=== PATIENT | female | born 1945 | race Asian ===

== ENCOUNTER 2017-02-01 19:14 | Emergency (ER) | payer MEDICARE, OTHER ==
[~2017-02-01] VITALS: Ht 162.6 cm; Wt 63.0 kg
[~2017-02-01 19:14] MED LIST: ASPI-535 PO; CARV3.12 PO; CENTSILV PO; CIPR500T4 PO; DEXL60CA2 PO; METO10TA92 PO; OMEG500C PO; TRAM50TA2 PO
[2017-02-01 19:22] VITALS: Ht 162.6 cm; Wt 63.0 kg
[2017-02-01 20:46] LABS: URINE BLOOD (Dip) POC Negative (NEGATIVE)
[2017-02-01 21:08] LABS: WHITE BLOOD COUNT 9.4 10^3/ul (4.8-10.8)
[2017-02-01 21:09] LABS: BASOPHILS % 0.3 % (0.0-2.0); EOSINOPHILS # 0.1 10^3/ul (0.0-0.5); EOSINOPHILS % 1.3 % (0.0-7.0); HEMATOCRIT 38.8 % (37.0-47.0); HEMOGLOBIN 12.5 g/dl (12.0-16.0); LYMPHOCYTES # 2.6 10^3/ul (0.8-2.9); LYMPHOCYTES % 27.6 % (15.0-51.0); MEAN CORPUSCULAR HEMOGLOBIN 31.4 pg (29.0-33.0); MEAN CORPUSCULAR HGB CONC 32.2 g/dl (32.0-37.0); MEAN CORPUSCULAR VOLUME 97.5 fl (82.0-101.0); MEAN PLATELET VOLUME 11.1 fl (7.4-10.4); MONOCYTE # 0.6 10^3/ul (0.3-0.9); MONOCYTES % 6.4 % (0.0-11.0); NEUTROPHILS % 64.1 % (39.0-77.0); PLATELET COUNT 226 10^3/UL (140-415); RED BLOOD COUNT 3.98 10^6/ul (4.20-5.40); RED CELL DISTRIBUTION WIDTH 12.4 % (11.5-14.5)
[2017-02-01 21:21] LABS: ADD UMIC YES; UR ASCORBIC ACID NEGATIVE (NEGATIVE); UR BILIRUBIN (Dip) NEGATIVE (NEGATIVE); UR BLOOD (Dip) NEGATIVE (NEGATIVE); UR CLARITY CLEAR (CLEAR); UR COLOR YELLOW (YELLOW); UR GLUCOSE (Dip) NEGATIVE (NEGATIVE); UR KETONES (Dip) NEGATIVE (NEGATIVE); UR LEUKOCYTE ESTERASE (Dip) TRACE Leu/ul (NEGATIVE); UR NITRITE (Dip) NEGATIVE (NEGATIVE); UR RBC 0 /HPF (0-5); UR SPECIFIC GRAVITY (Dip) 1.009 (1.003-1.030); UR TOTAL PROTEIN (Dip) NEGATIVE (NEGATIVE); UR UROBILINOGEN (Dip) NEGATIVE (NEGATIVE)
[2017-02-01 21:26] LABS: ALBUMIN 4.3 g/dl (3.3-4.9); ALBUMIN/GLOBULIN RATIO 1.16; BILIRUBIN,INDIRECT 0.2 mg/dl (0-1.1); BILIRUBIN,TOTAL 0.2 mg/dl (0.2-1.3); CALCIUM 9.6 mg/dl (8.4-10.2); CREATININE 0.78 mg/dl (0.44-1.00); POTASSIUM 4.5 mmol/L (3.5-5.1)
[2017-02-01] MEDS ORDERED: NITR-58 PO (21:41)
[2017-02-01 21:54] VITALS: BP 140/86; PULSE 86; RESP 20; TEMP 98.6
--- NOTE | 2017-02-01 22:47 | ERD ---
ER Documentation Chief Complaint Date/Time DATE: 02/01/17 TIME: 22:37 Chief Complaint pelvic pain w/ burning sensation on urination HPI Patient is a 71-year-old female brought in by her daughter with a past medical history of hypertension, GERD, glaucoma, status post hysterectomy, status post appendectomy, who presents to the emergency department for concerns of pelvic pain 1 month as well as burning pain with urination. Patient states her pain is episodic in nature. Patient does report taking ibuprofen approximately 1 week ago. She has not taken this medication since that time. Patient states that the ibuprofen did help however her pain is now returned. Patient reports pain in the suprapubic region. Patient also reports dysuria and frequency. Patient states that her urine is "cloudy". Patient denies any hematuria, flank pain, fever, chills, nausea, vomiting or LOC. Patient also reporting lower back pain x 2 months. Patient denies any falls or trauma. Patient denies any saddle anesthesia, urinary incontinence, stool incontinence, recent history of surgery or cancer diagnosis. Patient denies any chest pain, shortness breath, left upper extremity pain, diaphoresis or LOC. ROS All systems reviewed and are negative except as per history of present illness. Medications Home Meds Active Scripts Nitrofurantoin Monohyd Macrocr* (Macrobid*) 100 Mg Capsr, 100 MG PO BID for 5 Days, CAP Prov:PAUL FLORENCE PA-C 02/01/17 Ciprofloxacin Hcl* (Ciprofloxacin Hcl*) 500 Mg Tablet, 500 MG PO BID, #10 TAB Prov:VICENTA SEN MD 06/08/15 Carvedilol* (Coreg*) 3.125 Mg Tab, 3.125 MG PO BID, #60 TAB Prov:VCIENTA SEN MD 06/08/15 Tramadol HCl (Tramadol HCl) 50 Mg Tablet, 50 MG PO Q8H Y for PAIN LEVEL 6-10, # 20 TAB Prov:VICENTA SEN MD 06/08/15 Metoclopramide* (Reglan*) 10 Mg Tablet, 10 MG PO Q6H Y for NAUSEA AND OR VOMITING, #20 TAB Prov:VICENTA SEN MD 06/08/15 Reported Medications Dexlansoprazole (Dexilant) 60 Mg Cap., 60 MG PO DAILY, CAP 03/06/15 Multivitamins/Minerals (Centrum Silver) 1 Tab Tab, 1 TAB PO DAILY 12/30/11 Aspirin Ec (Aspir 81) 81 Mg Tablet.dr, 81 MG PO DAILY 02/22/11 [place]-3 Fatty Acids (Fish Oil) 500 Mg Capsule.dr, 1 CAP PO BID 12/31/09 Allergies Allergies: Coded Allergies: Sulfa (Sulfonamide Antibiotics) (Verified Allergy, Mild, RASH, MOUTH SORES , 01/23/14) RE-ENTERED UNCODED ALLERGY CODED Metronidazole HCl (Verified Allergy, Unknown, 01/23/14) erythromycin base (Verified Allergy, Unknown, 01/23/14) lorazepam (Verified Allergy, Unknown, 01/23/14) PMhx/Soc History of Surgery: Yes (HYSTERECTOMY, CATARACT, APPENDECTOMY) Anesthesia Reaction: No Hx Neurological Disorder: No Hx Respiratory Disorders: No Hx Cardiac Disorders: Yes (HYPERTENSION) Hx Psychiatric Problems: No Hx Miscellaneous Medical Probl: Yes (GERD, GLAUCOMA) Hx Alcohol Use: No Hx Substance Use: No Hx Tobacco Use: No Smoking Status: Never smoker FmHx Family History: No diabetes Physical Exam Vitals Vital Signs Date Time Temp Pulse Resp B/P Pulse Ox O2 Delivery O2 Flow Rate FiO2 02/01/17 21:54 98.6 86 20 140/86 100 Room Air 02/01/17 19:22 97.6 82 20 120/57 98 Physical Exam GENERAL: Well-developed, well-nourished female. Appears in no acute distress. HEAD: Normocephalic, atraumatic. EYES: Pupils are equally reactive bilaterally. EOMs grossly intact. No conjunctival erythema. ENT: Moist mucous membranes. No uvula deviation. No kissing tonsils. NECK: Supple. No meningismus. Normal range of motion of the neck. LUNG: Clear to auscultation bilaterally. No rhonchi, wheezing, rales or coarse breath sounds. HEART: Regular rate and rhythm. No murmurs, rubs or gallops. ABDOMEN: Soft, and nondistended. Tender to palpation in the suprapubic region. Positive bowel sounds in all four quadrants. No rebound tenderness, no guarding. (-) McBurney's point tenderness. No CVA tenderness. BACK: No midline tenderness. Tender to palpation of bilateral lumbar paraspinalis muscles. +Right straight leg raise test. EXTREMITIES: Equal pulses bilaterally. No peripheral clubbing, cyanosis or edema. No unilateral leg swelling. NEUROLOGIC: Alert and oriented. Moving all four extremities without any difficulty. Normal speech. Steady gait. SKIN: Normal color. Warm and dry. No rashes or lesions. Result Diagram: 02/01/17204902/01/172049 Results 24 hrs Laboratory Tests Test 02/01/17 20:30 02/01/17 20:50 02/01/17 20:53 Urine Color YELLOW Urine Clarity CLEAR Urine pH 7.0 Urine Specific [place] 1.009 Urine Ketones NEGATIVEmg/dL Urine Nitrite NEGATIVEmg/dL Urine Bilirubin NEGATIVEmg/dL Urine Urobilinogen NEGATIVEmg/dL Urine Leukocyte Esterase TRACELeu/ul Urine Microscopic RBC 0/HPF Urine Microscopic WBC 2/HPF Urine Hemoglobin NEGATIVEmg/dL Urine Glucose NEGATIVEmg/dL Urine Total Protein NEGATIVEmg/dl White Blood Count 9.410^3/ul Red Blood Count 3.9810^6/ul Hemoglobin 12.5g/dl Hematocrit 38.8% Mean Corpuscular Volume 97.5fl Mean Corpuscular Hemoglobin 31.4pg Mean Corpuscular Hemoglobin Concent 32.2g/dl Red Cell Distribution Width 12.4% Platelet Count 22374^3/UL Mean Platelet Volume 11.1fl Neutrophils % 64.1% Lymphocytes % 27.6% Monocytes % 6.4% Eosinophils % 1.3% Basophils % 0.3% Nucleated Red Blood Cells % 0.0/100WBC Neutrophils # 6.010^3/ul Lymphocytes # 2.610^3/ul Monocytes # 0.610^3/ul Eosinophils # 0.110^3/ul Basophils # 0.010^3/ul Nucleated Red Blood Cells # 0.010^3/ul Sodium Level 142mmol/L Potassium Level 4.5mmol/L Chloride Level 103mmol/L Carbon Dioxide Level 31mmol/L Anion Gap 13 Blood Urea Nitrogen 11mg/dl Creatinine 0.78mg/dl Glucose Level 102mg/dl Calcium Level 9.6mg/dl Total Bilirubin 0.2mg/dl Direct Bilirubin 0.00mg/dl Indirect Bilirubin 0.2mg/dl Aspartate Amino Transf (AST/SGOT) 39IU/L Alanine Aminotransferase (ALT/SGPT) 42IU/L Alkaline Phosphatase 105IU/L Total Protein 8.0g/dl Albumin 4.3g/dl Globulin 3.70g/dl Albumin/Globulin Ratio 1.16 Lipase 106U/L Bedside Urine pH (LAB) 7.0 Bedside Urine Protein (LAB) Negative Bedside Urine Glucose (UA) Negative Bedside Urine Ketones (LAB) Negative Bedside Urine Blood Negative Bedside Urine Nitrite (LAB) Negative Bedside Urine Leukocyte Esterase (L Trace Procedures/MDM ED COURSE: The patient was stable throughout ED course. I kept the patient and/or family informed of laboratory and diagnostic imaging results throughout the ED course. MEDICAL DECISION MAKING: This is a 71-year-old female who presents with suprapubic pain, dysuria, frequency and lower back pain. Patient denies any falls or trauma. Patient denies any saddle anesthesia, urinary cons, esophagitis, fever, chills, history of cancer or recent surgery. Vital signs were reviewed. Patient was afebrile. CBC showed no evidence of systemic infection or severe anemia. CMP showed no evidence of electrolyte abnormalities, severe acidosis, alkalosis, renal failure , or liver disease. Lipase showed no evidence of acute pancreatitis. Urinalysis showed trace leukocyte esterase. Given that patient did report symptoms of dysuria and urinary frequency, treat the patient with course of antibiotics at this time. Patient's urine will be sent for culture. Urine culture results pending. I did offer the patient x-ray of her lumbar back however she declined. Given the patient's blood work was unremarkable, I do not believe that CT imaging studies of the abdomen or pelvis are indicated at this time. Given these findings, the patients presentation is most consistent with urinary tract infection and lower back pain. I have a much lower clinical concern for cauda equina syndrome, spinal fracture, epidural abscess, sciatica, osteomyelitis, pyelonephritis, nephrolithiasis, diverticulitis, constipation, PID, ovarian torsion, or tubo-ovarian abscess. PRESCRIPTIONS: Macrobid DISCHARGE: At this time, patient is stable for discharge and outpatient management. Patient was given a copy of all blood work obtained today. I have instructed the patient to follow-up with his/her primary care physician in 1-2 days. Patient should repeat UA in 2 weeks to check for resolution of urinary tract infection. If symptoms persist, patient may need to see a specialist for further examinations and testing. I have instructed the patient to promptly return to the ER at any time for any new or worsening symptoms including increased pain, fever, nausea, vomiting, urinary changes or weakness. The patient and/or family expressed understanding of and agreement with this plan. All questions were answered. Home care instructions were provided. Disclaimer: Inadvertent spelling and grammatical errors are likely due to EHR/ dictation software use and do not reflect on the overall quality of patient care. Also, please note that the electronic time recorded on this note does not necessarily reflect the actual time of the patient encounter. Departure Diagnosis: Primary Impression: UTI (urinary tract infection) Urinary tract infection type: acute cystitis Hematuria presence: without hematuria Qualified Code: N30.00 - Acute cystitis without hematuria Additional Impression: Lower back pain Chronicity: chronic Back pain laterality: unspecified Sciatica presence: unspecified whether sciatica present Qualified Code: M54.5 - Chronic low back pain, unspecified back pain laterality, with sciatica presence unspecified Condition: Stable Patient Instructions: Understanding Urinary Tract Infections (UTIs) Additional Instructions: Call your primary care doctor TOMORROW for an appointment during the next 1-2 days.See the doctor sooner or return here if your condition worsens before your appointment time. PAUL FLORENCE PA-C Feb 01, 2017 22:46
== END 2017-02-01 21:56 | disposition home or self-care (01) ==
LOC: FTE 19:14
DX: N30.00 Acute cystitis without hematuria (principal); M54.5 Low back pain; I10 Essential (primary) hypertension; Z79.82 Long term (current) use of aspirin
CPT/HCPCS: 36415; 80053; 81001; 81003; 83690; 85025; 87086; 99283

== ENCOUNTER → 2017-02-05 | Outpatient (CLI) | payer MEDICARE, OTHER ==
[~2017-02-05] MED LIST changes: +NITR-58 PO
--- NOTE | 2017-02-05 14:28 | RADRPT ---
PROCEDURE: US Pelvis CLINICAL INDICATION: PELVIC PAIN, history of hysterectomy TECHNIQUE: Multiple sonographic images of the pelvis were obtained utilizing a transabdominal and endovaginal technique. The images were reviewed on a PACS workstation. COMPARISON: None. FINDINGS: The uterus is not visualized. There are no abnormal pelvic masses. Bilateral ovaries are not visualized. There are no abnormal adnexal masses. No significant pelvic free fluid is identified. IMPRESSION: The uterus and bilateral ovaries are not visualized. There are no abnormal pelvic or adnexal masses . Correlation with surgical history for oophorectomy is recommended. RPTAT: EE Physician Nghia Date Time Electronically viewed and signed by Physician Nghia on 02/05/2017 14:28 /
--- NOTE | 2017-02-05 14:33 | RADRPT ---
PROCEDURE: XR Hip. CLINICAL INDICATION: pain TECHNIQUE: AP and frog lateral views of the right hip were performed. COMPARISON: None. FINDINGS: There is normal mineralization and alignment. No fracture or osseous lesion is identified. There are no significant degenerative changes in the hip. The soft tissues are unremarkable. RPTAT: AA IMPRESSION: Unremarkable right hip. Physician Nghia Date Time Electronically viewed and signed by Eder Reese Physician on 02/05/2017 14:33 RA/
--- NOTE | 2017-02-05 14:35 | RADRPT ---
PROCEDURE: XR thoracic Spine. CLINICAL INDICATION: Back pain TECHNIQUE: AP and lateral views of the thoracic spine were obtained. COMPARISON: CT abdomen/pelvis from 01/23/2014 FINDINGS: There is normal vertebral mineralization and alignment. There is marked loss of height at the superior endplate of a mid thoracic vertebra, possibly T9, ant eriorly which is not significantly changed compared with the CT study from 2013. The disc spaces are normal in appearance. The posterior elements are unremarkable. The aortic arch is calcified. RPTAT: AA IMPRESSION: Marked loss of height of a mid thoracic vertebra consistent with an old compression fracture, as abo ve. An acute on chronic component to the fracture is not entirely excluded. Correlation with physi merlin exam for tenderness to palpation is recommended. Aortic atherosclerosis. Physician Nghia Date Time Electronically viewed and signed by Eder Reese Physician on 02/05/2017 14:35 /
--- NOTE | 2017-02-05 14:36 | RADRPT ---
PROCEDURE: XR Lumbar Spine. CLINICAL INDICATION: back pain TECHNIQUE: AP, lateral and cone-down lateral view of the lumbar spine were obtained. COMPARISON: No prior studies are available for comparison. FINDINGS: There is normal vertebral mineralization and alignment. No fracture or subluxation is seen. The disc spaces are normal in appearance. The posterior elements are unremarkable. The soft tissues appear normal. RPTAT: AA IMPRESSION: Unremarkable lumbar spine. Eder Reese Physician Date Time Electronically viewed and signed by Eder Reese Physician on 02/05/2017 14:36 RA/
== END | disposition home or self-care (01) ==
LOC: U/S 10:50
PROVIDERS: ATTEND Internal Medicine
DX: R10.2 Pelvic and perineal pain (principal); M54.5 Low back pain; M25.551 Pain in right hip
CPT/HCPCS: 72072; 72100; 73510; 76856

== ENCOUNTER 2017-09-23 14:14 | Emergency (ER) | END 2017-09-23 20:39 | disposition home or self-care (01) ==

== ENCOUNTER → 2017-10-17 | Outpatient (CLI) | END | disposition home or self-care (01) ==

== ENCOUNTER → 2018-02-28 | Outpatient (CLI) | END | disposition home or self-care (01) ==

== ENCOUNTER 2018-03-23 21:13 | Emergency (ER) | END 2018-03-24 | disposition home or self-care (01) ==

== ENCOUNTER → 2018-03-31 | Outpatient (CLI) | END | disposition home or self-care (01) ==

== ENCOUNTER → 2018-12-30 | Outpatient (CLI) | payer MEDICARE, OTHER ==
[~2018-12-30] MED LIST changes: +AZIT250T PO; +CEPH-443 PO; +CODE5LIQ2 PO; +IBUP-1542 PO; +ONDA4TAB8 PO
== END | disposition home or self-care (01) ==
LOC: RAD 11:31
PROVIDERS: ATTEND Internal Medicine
DX: R05 Cough (principal)
CPT/HCPCS: 71046

== ENCOUNTER 2019-01-21 19:03 | Emergency (ER) | payer MEDICARE, OTHER ==
[~2019-01-21] VITALS: Ht 160 cm; Wt 64.3 kg
[~2019-01-21 19:03] MED LIST changes: +AMOX1TAB10 PO
[2019-01-21 19:22] VITALS: Ht 160 cm; Wt 64.3 kg
[2019-01-21] MEDS ORDERED: SOD CHLORIDE 0.9% 500 ML IV STA (22:41)
[2019-01-21] MEDS ORDERED: ONDANSETRON 4 MG INJ IV STA (22:41)
--- NOTE | 2019-01-22 01:05 | ERD ---
ER Documentation Chief Complaint Chief Complaint lower abdominal pain x 1 day HPI This is a 73-year-old female with a past medical history of hypertension, GERD, previous hysterectomy, previous appendectomy who is presenting with 1 to 2 days of right sided and suprapubic waxing and waning mild to moderate aching sore burning. The patient endorses a burning dysuria with frequency and urgency as well. She endorses nausea but no vomiting. She reports having intermittent episodes of constipation. She has not had any diarrhea. She has not had any black or bloody or tarry stools per report. She does not endorse any alleviatin g or exacerbating factors. She does not endorse any changes with eating. She has had a decreased appetite over the last day. The patient denies fever or chills. However, the patient was noted to be febrile in triage. The patient has had no headache or vision changes. The patient does not endorse neck or back pain. The patient denies lightheadedness or dizziness. The patient has had no chest pain or trouble breathing. The patient has had no focal deficits. The patient has had no weakness or numbness or tingling to the face or extremities. ROS All systems reviewed and are negative except as per history of present illness. Medications Home Meds Active Scripts Ibuprofen* (Motrin*) 600 Mg Tab, 600 MG PO Q6 for pain, #30 TAB Prov:EMILIO THOMAS 07/22/18 Ondansetron Hcl* (Zofran*) 4 Mg Tablet, 4 MG PO Q8H PRN for NAUSEA AND/OR VOMITING, #30 TAB Prov:CEFERINO COOK MD 03/23/18 Cephalexin* (Keflex*) 500 Mg Capsule, 500 MG PO QID for 5 Days, CAP Prov:CEFERINO COOK MD 03/23/18 Guaifenesin-Codeine Phosphate* (Robitussin* AC) 5 Ml Syrup, 10 ML PO Q6H PRN for COUGH, #120 ML Prov:YULISSA ARIZA MD 09/23/17 Azithromycin* (Zithromax*) 250 Mg Tablet, 250 MG PO .ZPACK DIRECTED, #6 TAB TAKE 500 MG (2 TABS) THE FIRST DAY THEN 250 MG (1 TAB) DAYS 2-5 Prov:YULISSA ARIZA MD 09/23/17 Nitrofurantoin Monohyd Macrocr* (Macrobid*) 100 Mg Capsr, 100 MG PO BID for 5 Days, CAP Prov:PAUL FLORENCE PA-C 02/01/17 Ciprofloxacin Hcl* (Ciprofloxacin Hcl*) 500 Mg Tablet, 500 MG PO BID, #10 TAB Prov:VICENTA SEN MD 06/08/15 Carvedilol* (Coreg*) 3.125 Mg Tab, 3.125 MG PO BID, #60 TAB Prov:VICENTA SEN MD 06/08/15 Tramadol HCl (Tramadol HCl) 50 Mg Tablet, 50 MG PO Q8H PRN for PAIN LEVEL 6-10, #20 TAB Prov:VICENTA SEN MD 06/08/15 Metoclopramide* (Reglan*) 10 Mg Tablet, 10 MG PO Q6H PRN for NAUSEA AND OR VOMITING, #20 TAB Prov:VICENTA SEN MD 06/08/15 Reported Medications Dexlansoprazole (Dexilant) 60 Mg Cap..mp, 60 MG PO DAILY, CAP 03/06/15 Multivitamins/Minerals (Centrum Silver) 1 Tab Tab, 1 TAB PO DAILY 12/30/11 Aspirin Ec (Aspir 81) 81 Mg Tablet.dr, 81 MG PO DAILY 02/22/11 [place]-3 Fatty Acids (Fish Oil) 500 Mg Capsule.dr, 1 CAP PO BID 12/31/09 Allergies Allergies: Coded Allergies: Sulfa (Sulfonamide Antibiotics) (Verified Allergy, Mild, RASH, MOUTH SORES, 07/22/18) RE-ENTERED UNCODED ALLERGY CODED Metronidazole HCl (Verified Allergy, Unknown, 07/22/18) erythromycin base (Verified Allergy, Unknown, 07/22/18) lorazepam (Verified Allergy, Unknown, 07/22/18) PMhx/Soc History of Surgery: Yes (HYSTERECTOMY, CATARACT, APPENDECTOMY) Anesthesia Reaction: No Hx Neurological Disorder: No Hx Respiratory Disorders: No Hx Cardiac Disorders: Yes (HYPERTENSION) Hx Psychiatric Problems: No Hx Miscellaneous Medical Probl: Yes (GERD, GLAUCOMA) Hx Alcohol Use: No Hx Substance Use: No Hx Tobacco Use: No Smoking Status: Unknown if ever smoked FmHx Family History: No diabetes Physical Exam Vitals Vital Signs Date Temp Pulse Resp B/P (MAP) Pulse Ox O2 O2 Flow FiO2 Time Delivery Rate 01/21/19 100.5 80 21 127/58 100 Room Air 22:09 (81) 01/21/19 100.5 87 18 127/67 97 19:22 (87) Physical Exam Const: No apparent distress, well-developed, well-nourished Head: Normocephalic, Atraumatic Eyes: Normal Conjunctiva. Extraocular movements intact. ENT: Normal External Ears, Nose and Mouth. Neck: Full range of motion. No meningismus. Resp: Clear to auscultation bilaterally, No wheezes, rales or rhonchi Cardio: Regular rate and rhythm. No murmurs, rubs or gallops Abd: Soft, non distended. Left lower quadrant abdominal tenderness. Normal bowel sounds Skin: No petechiae or rashes Back: No midline tenderness. No CVA tenderness Ext: No cyanosis, or edema Neur: Awake and alert, oriented 4. Cranial nerves intact. No facial droop. Normal strength, sensation and coordination. Psych: Normal Mood and Affect Result Diagram: 01/21/19225101/21/192251 Results 24 hrs Laboratory Tests Test 01/21/19 22:16 01/21/19 22:30 01/21/19 22:52 Urine Color STRAW Urine Clarity CLEAR Urine pH 7.0 Urine Specific [place] 1.004 Urine Ketones NEGATIVE mg/dL Urine Nitrite NEGATIVE mg/dL Urine Bilirubin NEGATIVE mg/dL Urine Urobilinogen NEGATIVE mg/dL Urine Leukocyte Esterase TRACE Matthew/ul Urine Microscopic RBC 0 /HPF Urine Microscopic WBC 3 /HPF Urine Hemoglobin NEGATIVE mg/dL Urine Glucose NEGATIVE mg/dL Urine Total Protein NEGATIVE mg/dl Bedside Urine pH (LAB) 6.5 Bedside Urine Protein (LAB) Negative Bedside Urine Glucose (UA) Negative Bedside Urine Ketones (LAB) Negative Bedside Urine Blood Negative Bedside Urine Nitrite (LAB) Negative Bedside Urine Leukocyte Esterase Trace (L White Blood Count 11.5 10^3/ul Red Blood Count 3.85 10^6/ul Hemoglobin 12.1 g/dl Hematocrit 37.2 % Mean Corpuscular Volume 96.6 fl Mean Corpuscular Hemoglobin 31.4 pg Mean Corpuscular 32.5 g/dl Hemoglobin Concent Red Cell Distribution Width 13.1 % Platelet Count 234 10^3/UL Mean Platelet Volume 11.2 fl Immature Granulocytes % 0.300 % Neutrophils % 71.3 % Lymphocytes % 21.3 % Monocytes % 6.3 % Eosinophils % 0.5 % Basophils % 0.3 % Nucleated Red Blood Cells % 0.0 /100WBC Immature Granulocytes # 0.030 10^3/ul Neutrophils # 8.2 10^3/ul Lymphocytes # 2.5 10^3/ul Monocytes # 0.7 10^3/ul Eosinophils # 0.1 10^3/ul Basophils # 0.0 10^3/ul Nucleated Red Blood Cells # 0.0 10^3/ul Prothrombin Time 11.3 Sec Prothrombin Time Ratio 0.9 INR International 0.81 Normalized Ratio Sodium Level 140 mmol/L Potassium Level 3.8 mmol/L Chloride Level 104 mmol/L Carbon Dioxide Level 30 mmol/L Anion Gap 6 Blood Urea Nitrogen 10 mg/dl Creatinine 0.69 mg/dl Est Glomerular Filtrat mL/min Rate mL/min Glucose Level 109 mg/dl Calcium Level 9.7 mg/dl Total Bilirubin 1.0 mg/dl Direct Bilirubin 0.00 mg/dl Indirect Bilirubin 1.0 mg/dl Aspartate Amino 61 IU/L Transf (AST/SGOT) Alanine 75 IU/L Aminotransferase (ALT/SGPT) Alkaline Phosphatase 131 IU/L Total Protein 7.5 g/dl Albumin 4.2 g/dl Globulin 3.30 g/dl Albumin/Globulin Ratio 1.27 Lipase 116 U/L Current Medications Medications Dose Sig/Sima Start Time Status Last (Trade) Ordered Route PRN Stop Time Admin Dose Reason Admin Sodium 500 ml @ Q1H STAT 01/21/19 DC 01/21/19 Chloride 500 mls/hr IV 22:41 23:07 01/21/19 23:40 Ondansetron 4 mg ONCE STAT 01/21/19 DC 01/21/19 HCl (Zofran IV 22:41 23:07 Inj) 01/21/19 22:57 Procedures/MDM MDM The patient's presentation warrants further investigation. Previous medical records, if available, were reviewed. LABS The patient's laboratory testing was obtained and reviewed. No emergent treatment was required unless described below. CBC: Mild leukocytosis without shift. No E/o systemic infection or severe anemia or thrombocytopenia Chemistry: No E/o severe acidosis or alkalosis or renal failure or diabetic ketoacidosis. Mild transaminitis. Lipase: No E/o pancreatitis PT/INR: No E/o significant coagulopathy Urine: No E/o acute infection or hematuria IMAGING Imaging and Radiology interpretation reviewed. CT abdomen pelvis FINDINGS: The lung bases are clear of any infiltrate or nodule. No effusion is seen. The liver is of normal size, contour and attenuation with no solid mass or ductal dilatation. There are multiple sub centimeter hepatic cysts. No gallstones are visualized. No splenic, adrenal or pancreatic abnormalities present. Kidneys are of normal size and contour. No hydronephrosis or masses seen. There is 88 mm nonobstructing left renal calculus. Ureters are of normal course and caliber with no stone. No bladder mass or stone is present. Uterus is been removed. No adnexal masses present. There is no aneurysm. No adenopathy is present. No bowel mass or obstruction is present. The appendix is not identified. Noted is diverticulosis. There is thickening of the wall of the proximal sigmoid in the left pelvis with stranding of the surrounding pericolic fat. No discrete collection is seen and no ascites or pneumoperitoneum is visualized. The osseous structures are intact. IMPRESSION: Proximal sigmoid diverticulitis left pelvis without abscess or pneumoperitoneum. 2 mm nonobstructing left renal calculus. Tiny hepatic cysts. Electronically viewed and signed by .Junior Valdivia MD, on 01/21/2019 23:54 TREATMENT/DISPOSITION The patient presents for lower and left-sided abdominal pain with nausea. She is found to have a fever in the ER. She does have a mild leukocytosis, but no left shift. I suspect this to be reactive. The patient CT scan does reveal evidence of diverticulitis, which will require treatment. That said, she does not appear systemically ill. I do not suspect sepsis and I do not feel the patient requires a full septic work-up. There is no evidence of viscus perforation. The patient does not have any e vidence of peritonitis. The patient does not have clinical symptoms concerning for mesenteric ischemia or ischemic colitis. The patient does not have right upper quadrant tenderness, and I have low suspicion for gallstones, cholecystitis or biliary colic. The patient does not have any epigastric pain. I have low suspicion for gastritis, PUD or GERD. The patient does not have left upper quadrant tenderness. I have low suspicion for pancreatitis. The patient does not have any right lower quadrant tenderness, or periumbilical tenderness. I have low suspicion for appendicitis. The patient did endorse urinary symptoms, but her urinalysis does not reveal any evidence of an infection. I have decreased suspicion for cystitis. The patient does not have any flank tenderness. The patient does not have gross hematuria. She does have a small nonobstructing left-sided nephrolithiasis. That said, I do not suspect this to be related. I have decreased suspicion for emergent nephrolithiasis or renal colic. The patient does not have any palpable pulsatile mass or severe abdominal pain radiating to the back. I have low suspicion for aortic aneurysm, dissection or rupture. DISCHARGE Upon reevaluation of the patient, symptoms have improved. No emergent diagnoses were identified. At this time, I feel that the patient stable for discharge. The patient was instructed to follow-up with a primary care physician in 1-3 days. The patient will be given strict precautions with which to return to the emergency department. Prescriptions: Cipro, Flagyl, Zofran The patient's blood pressure was elevated at greater than 120/80 while in the emergency department. The patient was otherwise stable with no evidence of hypertensive urgency or emergency. The patient does not require admission for blood pressure control. I have discussed with the patient the risks of hypertension. I have instructed the patient to return to the ER for any new or worsening symptoms including chest pain, shortness of breath, headache, blurred vision, confusion, nausea, vomiting or LOC. I have advised the patient to follow up with the primary care physician for outpatient monitoring and treatment for hypertension in 1-3 days. DISCLAIMER Inadvertent spelling and grammatical errors are likely due to EHR/dictation software use and do not reflect on the overall quality of patient care. Note that the electronic time recorded on this note does not necessarily reflect the actual time of the patient encounter. Departure Diagnosis: Primary Impression: Diverticulitis Additional Impressions: Fever Fever type: unspecified Qualified Codes: R50.9 - Fever, unspecified Nausea Abdominal pain Abdominal location: lower abdomen, unspecified Qualified Codes: R10.30 - Lower abdominal pain, unspecified Leukocytosis Leukocytosis type: unspecified Qualified Codes: D72.829 - Elevated white blood cell count, unspecified Transaminitis Condition: Stable Patient Instructions: Abdominal Pain, Diverticulitis, Nausea Additional Instructions: Thank you for for coming to [facility] for your care today. Please ask your nurse or provider if you have questions about your care today and do not leave until all your questions have been answered. Please use any medications given as directed and follow-up with your doctor (or the doctor you were referred to) in the next 1-3 days. If you do not have a primary care doctor you may follow up at the [facility] or our community hospital (listed below). You may also use motrin and tylenol as needed for fever and/or pain unless instructed otherwise by your provider or nurse. Indications for more urgent follow-up have been discussed, but you may return to the Emergency Department at ANY time for any worrisome or worsening symptoms. If you have abdominal pain, please know that no test or exam you received is perfect and you should follow up within 8 hours for continued pain. If you had any imaging studies today, such as an X-Ray or CT Scan, these studies will be reviewed later by a radiologist. You will be called if there are important findings that were not identified today, so make sure the contact information you provided at registration is correct. If you received any narcotic pain control medicine today, such as Vicodin, Morphine or Dilaudid, your coordination and judgment may be affected for a number of hours. Please do not drive or operate heavy machinery, and you may want someone to assist you at home. If you were given a prescription for na rcotic medication, be aware that it is very addictive- use sparingly and only if necessary. PLEASE SEEK FURTHER EVALUATION AND MANAGEMENT AT YOUR DOCTORS OFFICE WITHIN THE NEXT 1-3 DAYS. IT IS YOUR RESPONSIBILITY TO MAKE AN APPOINTMENT FOR FOLOW-UP CARE. IF YOU HAVE A PRIMARY DOCTOR, PLEASE CALL THEIR OFFICE TO SCHEDULE AN APPOINTMENT FOR FOLLOW UP. IF YOU DO NOT HAVE A PRIMARY DOCTOR YOU CAN CALL OUR PHYSICIAN REFERRAL HOTLINE AT IF YOU CAN NOT AFFORD TO SEE A PHYSICIAN YOU CAN CHOSE FROM THE FOLLOWING [facility] CLINICS: [facility] [address] [facility] [address] [facility] [facility] [address] [facility] [address]. [facility] [address] [facility]. [facility]. [address] KATHE HAMMER MD Jan 22, 2019 01:05
[2019-01-22] MEDS ORDERED: KETOROLAC 15 MG INJ IV STA (01:15)
[2019-01-22 02:25] VITALS: BP 101/50; PULSE 73; RESP 14
== END 2019-01-22 02:27 | disposition home or self-care (01) ==
LOC: E/R 19:03
DX: K57.32 Diverticulitis of large intestine without perforation or abscess without bleeding (principal); D72.829 Elevated white blood cell count, unspecified; R74.0 Nonspecific elevation of levels of transaminase and lactic acid dehydrogenase [LDH]; I10 Essential (primary) hypertension; Z79.82 Long term (current) use of aspirin
CPT/HCPCS: 36415; 74176; 80053; 81001; 83690; 85025; 85610; 96374; 96375; 99285; J1885; J2405; J7040; 81003

== ENCOUNTER 2019-04-25 13:11 | Emergency (ER) | payer MEDICARE, OTHER ==
[~2019-04-25] VITALS: Ht 157.5 cm; Wt 56.8 kg
[2019-04-25 13:14] VITALS: Ht 157.5 cm; Wt 56.8 kg
[2019-04-25] MEDS ORDERED: FAMOTIDINE 20 MG INJ IV STA (16:53)
[2019-04-25] MEDS ORDERED: HYDROCODONE/APAP (10/325) TAB PO ONE (17:00)
[2019-04-25] MEDS: AL HYDROX/MG HYDROX/SIMETH 30 ML CUP PO ONE ×2 (17:02→17:10)
[2019-04-25 20:00] VITALS: BP 136/78; PULSE 75; RESP 16
== END 2019-04-25 20:01 | disposition home or self-care (01) ==
LOC: E/R 13:11
DX: R07.9 Chest pain, unspecified (principal); I10 Essential (primary) hypertension; F41.9 Anxiety disorder, unspecified; Z79.82 Long term (current) use of aspirin
CPT/HCPCS: 36415; 71045; 80048; 82962; 84484; 85025; 85378; 93005; 96374